=== PATIENT | female | born 2000 | race Hispanic/Latino ===

== ENCOUNTER 2023-04-23 17:20 | Day surgery (SDC) | payer OTHER | END 2023-04-23 19:10 | disposition home or self-care (01) | LOC: CSHLD/OP 17:20 | PROVIDERS: ATTEND Family Medicine | DX: O99.891 Other specified diseases and conditions complicating pregnancy (principal); N89.8 Other specified noninflammatory disorders of vagina; Z3A.37 37 weeks gestation of pregnancy; Z88.4 Allergy status to anesthetic agent | CPT/HCPCS: 99282 ==

== ENCOUNTER 2023-04-26 06:42 | Inpatient (IN) | payer OTHER ==
[2023-04-26 07:04] VITALS: BMI 46.8
[2023-04-26 07:48] LABS: Fetal Membranes Rupture RUPTURE DETECTED (No Rupture)
[2023-04-26] MEDS ORDERED: Diphenoxylate HCl/Atropine Tablet PO PRN (07:59)
[2023-04-26] MEDS ORDERED: Ibuprofen 800 MG TAB PO PRN (07:59)
[2023-04-26] MEDS ORDERED: hydrALAZINE 20 MG/ML VIAL SLOW IVP PRN (07:59)
[2023-04-26] MEDS ORDERED: Ondansetron PF 4 MG/2 ML Vial IVP PRN ×2 (07:59→20:03)
[2023-04-26] MEDS ORDERED: Carboprost 250 MCG/ML AMP IM PRN (07:59)
[2023-04-26] MEDS ORDERED: Misoprostol 200 MCG TAB PR PRN (07:59)
[2023-04-26] MEDS ORDERED: Methylergonovine 0.2 MG/ML VIAL IM PRN (07:59)
[2023-04-26] MEDS ORDERED: HYDROcodone/Acetaminophen 5/325 mg Tablet PO PRN (07:59)
[2023-04-26] MEDS ORDERED: Tranexamic Acid 1,000 MG/10 ML VIAL IVP PRN (07:59)
[2023-04-26] MEDS ORDERED: Acetaminophen 500 MG TAB PO PRN (07:59)
[2023-04-26] MEDS ORDERED: Lidocaine 1% (PF) 30 ML VIAL SC PRN (07:59)
[2023-04-26] MEDS ORDERED: Promethazine HCl 25 MG/ML VIAL IM PRN ×2 (07:59→20:03)
[2023-04-26] MEDS ORDERED: fentaNYL 50 mcg/mL 1 mL Vial SLOW IVP PRN (07:59)
[2023-04-26] MEDS ORDERED: Lactated Ringer's 1,000 ML IV SCH (08:00)
[2023-04-26] MEDS ORDERED: Oxytocin 30 units/NS 500 ML 500 ML IV SCH ×3 (08:00)
[2023-04-26 09:10] LABS: Hematocrit 32.8 % (34.9-44.5); Hemoglobin 10.3 g/dL (12.0-15.5); Mean Corpuscular HGB CONC 31.4 g/dL (32.0-36.0); Mean Corpuscular Hemoglobin 24.8 pg (27.0-33.0); Mean Platelet Volume 10.5 fl (7.4-10.4); Platelet Count 305 10x3/uL (150-450); RBC Distribution Width 14.3 % (11.5-14.5); Red Blood Cell (RBC) Count 4.15 10x6/uL (3.90-5.03); White Blood Cell (WBC) Count 10.5 10x3/uL (3.5-10.5)
[2023-04-26 09:32] LABS: HBSAg Index 0.27 S/CO (0-0.99); Hep B Surf Ag - L&D Non-Reactive S/CO (NonReactive); Syphilis Antibody Nonreactive (Nonreactive); Syphilis Antibody Index 0.03 S/CO (<1.00 Non-Reactive)
[2023-04-26] MEDS ORDERED: Penicillin G Potassium 5 MILL.UNITS in Sodium Chloride 0.9% 100 ML IVPB SCH (09:45)
[2023-04-26] MEDS ORDERED: hydrALAZINE 20 MG/ML VIAL ONE (12:47)
[2023-04-26] MEDS: Penicillin G 2.5 MILL.units 2.5 MILL.UNITS in Premix Bag 1 BAG IVPB SCH ×2 (14:46→18:10)
[2023-04-26] MEDS ORDERED: fentaNYL/Ropivacaine Epidural 100 ML ONE (19:30)
[2023-04-26] MEDS ORDERED: Bupivacaine 0.25% HCL 30 ML VIAL ONE (19:36)
[2023-04-26] MEDS ORDERED: ePHEDrine Sulfate 50 MG/10 ML VIAL ONE (19:36)
[2023-04-26] MEDS ORDERED: Lactated Ringer's 500 ML IV PRN (20:03)
[2023-04-26] MEDS ORDERED: ePHEDrine Sulfate 50 MG/10 ML VIAL SLOW IVP PRN (20:03)
[2023-04-26] MEDS ORDERED: diphenhydrAMINE 50 MG/ML VIAL IVP PRN (20:03)
[2023-04-26] MEDS ORDERED: Naloxone HCl 0.4 mg/ml Vial IVP PRN ×2 (20:03)
[2023-04-26] MEDS ORDERED: Acetaminophen 325 MG TAB PO PRN (20:03)
[2023-04-26] MEDS ORDERED: Moisturizing Cream (Eucerin) 113 GM JAR TOP PRN (20:03)
[2023-04-26] MEDS ORDERED: Communication Order-Pharmacy FS SCH (20:15)
[2023-04-26] MEDS ORDERED: fentaNYL 2 mcg/Ropivacaine 0.2% Epidural 100 ML CADD EPIDURAL SCH (20:15)
[2023-04-27] MEDS ORDERED: Promethazine HCl 25 MG/ML VIAL IM PRN (04:01)
[2023-04-27] MEDS ORDERED: Milk Of Magnesia 30 ML UDCUP PO PRN (04:01)
[2023-04-27] MEDS ORDERED: hydrALAZINE 20 MG/ML VIAL SLOW IVP PRN (04:01)
[2023-04-27] MEDS ORDERED: diphenhydrAMINE 25 MG CAP PO PRN (04:01)
[2023-04-27] MEDS ORDERED: Bisacodyl 10 MG SUPP PR PRN (04:01)
[2023-04-27] MEDS ORDERED: Lanolin Ointment 7 GM TUBE TOP PRN (04:01)
[2023-04-27] MEDS ORDERED: Ondansetron PF 4 MG/2 ML Vial IVP PRN (04:01)
[2023-04-27] MEDS ORDERED: Boostrix 0.5 ML (Tdap) VIAL (>/=7 yrs of age) IM ONE (04:01)
[2023-04-27] MEDS ORDERED: Benzocaine-Menthol 82.5 ML CAN TOP PRN (04:01)
[2023-04-27] MEDS: HYDROcodone/Acetaminophen 5/325 mg Tablet PO PRN ×2 (04:20→15:27)
[2023-04-27] MEDS: Ibuprofen 800 MG TAB PO SCH ×3 (05:55→21:18)
[2023-04-27] MEDS: Ferrous Sulfate 325 MG TAB PO SCH ×2 (07:20→17:44)
[2023-04-27] MEDS: Docusate 100 MG CAP PO SCH ×2 (09:15→21:18)
[2023-04-27] MEDS: Prenatal Vitamin 1 TAB PO SCH (09:15)
[2023-04-28] MEDS: Ibuprofen 800 MG TAB PO SCH ×2 (05:34→13:57)
[2023-04-28] MEDS: Docusate 100 MG CAP PO SCH (08:01)
[2023-04-28] MEDS: HYDROcodone/Acetaminophen 5/325 mg Tablet PO PRN ×2 (08:01→13:30)
[2023-04-28] MEDS: Prenatal Vitamin 1 TAB PO SCH (08:01)
[2023-04-28 08:13] VITALS: BP 117/57; TEMP 97.8
== END 2023-04-28 14:20 | disposition home or self-care (01) | DRG 807 ==
LOC: CSHLD/OP 06:42 → CSHLD 07:59 → CSHPED 04-27 01:26
PROVIDERS: ADMIT Family Medicine; ATTEND Family Medicine
PROC: 10E0XZZ Delivery of Products of Conception, External Approach (ICD-10-PCS; principal; 2023-04-26)
PROC: 10H07YZ Insertion of Other Device into Products of Conception, Via Natural or Artificial Opening (ICD-10-PCS; 2023-04-26)
PROC: 0HQ9XZZ Repair Perineum Skin, External Approach (ICD-10-PCS; 2023-04-26)
PROC: 0UQMXZZ Repair Vulva, External Approach (ICD-10-PCS; 2023-04-26)
DX: O42.02 Full-term premature rupture of membranes, onset of labor within 24 hours of rupture (principal); Z37.0 Single live birth; Z3A.37 37 weeks gestation of pregnancy; O99.824 Streptococcus B carrier state complicating childbirth; O70.0 First degree perineal laceration during delivery
CPT/HCPCS: 51702; 84112; 85027; 86780; 86850; 86900; 86901; 87340; 99285; J2001; J2540; J2590; J3490; J7120; S0020